=== PATIENT | male | born 1970 | race Two or more races ===

== ENCOUNTER 2018-08-03 12:12 | Emergency (ER) | payer MEDICAID ==
[~2018-08-03] VITALS: Ht 180.3 cm; Wt 99.8 kg
[2018-08-03 14:29] VITALS: BP 122/95
== END 2018-08-03 14:32 | disposition home or self-care (01) ==
LOC: ER 12:12
DX: G51.0 Bell's palsy (principal)
CPT/HCPCS: 70450; 93005